=== PATIENT | male | born 1975 | race Two or more races ===

== ENCOUNTER 2017-02-19 21:31 | Emergency (ER) | payer SELFPAY ==
[~2017-02-19] VITALS: Ht 167.6 cm; Wt 74.8 kg
[2017-02-19 21:47] VITALS: BP 125/74
[2017-02-19] MEDS ORDERED: FLUORESCEIN SOD 1 MG TEST STRIP LEFTEYE ONE (22:30)
[2017-02-19] MEDS ORDERED: TETRACAINE HCL 0.5% OPTH(EYE) SOLN 4ML LEFTEYE ONE (22:30)
== END 2017-02-19 23:40 | disposition home or self-care (01) ==
LOC: ER 21:38
DX: T15.92XA Foreign body on external eye, part unspecified, left eye, initial encounter (principal); X58.XXXA Exposure to other specified factors, initial encounter; Y93.9 Activity, unspecified; Y99.8 Other external cause status; Y92.89 Other specified places as the place of occurrence of the external cause

== ENCOUNTER 2022-08-17 01:22 | Emergency (ER) | payer SELFPAY ==
[~2022-08-17] VITALS: Ht 167.6 cm; Wt 77.3 kg
[2022-08-17] MEDS ORDERED: ONDANSETRON ODT 4 MG TAB PO ONE (04:00)
[2022-08-17] MEDS ORDERED: MORPHINE SULFATE INJ 2 MG/ml SYRG IM ONE (04:00)
[2022-08-17 04:27] VITALS: BP 128/77
== END 2022-08-17 05:10 | disposition home or self-care (01) ==
LOC: ER 01:22
DX: N47.2 Paraphimosis (principal)
CPT/HCPCS: 54450; 96372; 99284; J2270; Q0162